=== PATIENT | male | born 1950 | race Caucasian/White ===

== ENCOUNTER → 2018-01-08 | Day surgery (SDC) | payer MEDICARE, OTHER ==
[~2018-01-08] MED LIST: ATORVASTATIN CA40 MG PO; CARVEDILOL12.5 MG PO; ENTRESTO 24 MG1 EACH PO; HYDROCODONE-AP1 EAC6 PO; HYOSCYAMINE0.125 M1 SUBQ; JANUMET XR 50-1 EAC1 PO; LEVEMIR100 UNIT/1 SUBQ; PLAVIX 75 MG TA75 M1 PO; VITAMIN E400 UNIT PO; VITAMINC500 PO
[2018-01-08 07:30] LABS: HEMATOCRIT 35.3 % (42.0-52.0); HEMOGLOBIN 11.1 gm/dL (14.0-18.0); MCH 26.7 pg (26.0-34.0); MCHC 31.5 g/dL (28.0-37.0); MCV 84.7 fL (80.0-100.0); MPV 8.1 fl. (7.2-11.1); RBC 4.17 mil/uL (4.50-6.00); RDW-CV 16.7 % (10.5-14.5); WBC 7.6 thou/uL (4.0-11.0)
[2018-01-08 07:34] LABS: CALCIUM 8.6 mg/dL (8.5-10.1); CREATININE 1.7 mg/dL (0.6-1.3); POTASSIUM 4.6 mmol/L (3.5-5.1)
[2018-01-08 07:46] LABS: ALBUMIN 3.4 g/dL (3.4-5.0); TOTAL BILIRUBIN 0.2 mg/dL (<0.1-1.0); TOTAL PROTEIN 6.9 g/dL (6.4-8.2)
--- NOTE | 2018-01-08 12:27 | OP ---
[facility] [address] [place] [address] OPERATIVE REPORT Name: GORGESAM Escobar Room: [facility]#: [id number] Admission: 01/08/18 Attend Phys: Johnathan Cole MD Discharge: Date of : 52 Report #: [id number] THIS REPORT FOR: //name// CC: Johnathan Dale DATE OF SERVICE: 01/08/2018 DATE OF PROCEDURE: 01/08/2018. PREOPERATIVE DIAGNOSES: Right hydronephrosis, ureteral calculus and renal insufficiency. POSTOPERATIVE DIAGNOSES: Right hydronephrosis, ureteral calculus, renal insufficiency and urethral stricture. PROCEDURES: Cystoscopy with dilation of urethral stricture, right retrograde pyelogram, right ureteroscopy and right ureteral stent placement. SURGEON: Johnathan Cole M.D. ANESTHESIA: General. ESTIMATED BLOOD LOSS: None. DRAINS: A 6 x 28 right ureteral stent. SPECIMENS: None. COMPLICATIONS: None. INDICATIONS: This is a 67-year-old male with renal insufficiency, who was noted to have right hydronephrosis on renal ultrasound. A CT scan done to evaluate this further reveals an 8 mm right proximal ureteral calculus. Alternatives for management were discussed and the patient presents for cystoscopy, right retrograde pyelogram, right ureteroscopy, laser stone manipulation and stent placement. Risks of procedure were explained including but not limited to bleeding; infection;, anesthesia; cardiopulmonary and vascular events; injuries to urethra, bladder or ureter; possible development of strictures; possible need for further stone procedures, irritative symptoms from the stent. We also discussed the need for timely followup regarding any stent left in place and the reasoning for that. The patient voiced clear understanding and wants to proceed. DESCRIPTION OF PROCEDURE: The patient was pretreated with IV Cipro. After induction of general anesthesia, he was positioned, prepped [place] [address] OPERATIVE REPORT Name: SAM PENNINGTON Room: [facility]#: [id number] Admission: 01/08/18 Attend Phys: Johnathan Cole MD Discharge: Date of : 52 Report #: [id number] lithotomy position. Timeout was performed. Cystourethroscopy was performed. There is a bulbar stricture noted, which was not passing with the scope. This was dilated with obturators from 17-Rwandan to 24-Rwandan. Cystourethroscopy was then repeated. The anterior urethra was otherwise normal. The prostatic urethra was within normal limits. The bladder was entered and systematically examined with 30 and 70-degree scopes. There were no stones or lesions visible within the bladder. Ureteral orifices were orthotopic. A 5-Rwandan ureteral catheter was used to perform a right retrograde pyelogram, which revealed a filling defect in the proximal ureter, with dilation of the ureter and renal pelvis cephalad to that. A sensor wire was advanced with fluoroscopic guidance to the right renal pelvis. Scope was removed leaving the wire in place. A semi-rigid ureteroscope was advanced alongside the wire and into the right ureter. This would only pass a few centimeters into the right ureter due to distal ureteral narrowing. Scope was used to pass a second wire with visual and fluoroscopic guidance into the renal pelvis. Scope was withdrawn leaving both wires in place. Attempts to pass a ureteral access sheath (11/13 Rwandan x 36 cm) were unsuccessful as were attempts to pass the obturator. I decided to place a stent and allow for passive dilation with treatment of his stone at a later date. The sheath in one of the wires was removed, leaving the other wire in place. That was loaded on the cystoscope and used for placement of a 6 x 28 right ureteral stent with good position confirmed in the renal pelvis fluoroscopically and in the bladder visually. Drainage from the stent was clear. The patient tolerated the procedure well and was taken to the recovery room in stable condition. Lidocaine jelly was given per urethra at the end of the procedure. Plan will be to set up repeat ureteroscopy in the next few weeks after allowing a period of passive dilation. <ELECTRONICALLY SIGNED> By: Johnathan Cole MD 01/08/18 1227 1004 [id number] Cole MD /nt
--- NOTE | 2018-01-09 13:36 | EKG ---
[place] [address] ELECTROCARDIOGRAM REPORT Name: PENNINGTONSAM GUY Room: [facility]#: [id number] Admission: 01/08/18 Attend Phys: Johnathan Cole MD Discharge: Date of : 52 Report #: [id number] THIS REPORT FOR: //name// [facility] Test Date: 2018-01-08 Test Time: 07:26:16 Pat Name: SAM PENNINGTON Department: Room: Gender: M Body And Frame Man: [facility] : 1950 Requested By: Johnathan Cole Order Number: [id number] Reading MD: Oscar August Measurements Intervals Hilliards Rate: 65 P: 46 OK: 138 QRS: 27 QRSD: 110 T: 167 QT: 429 QTc: 447 Interpretive Statements Sinus rhythm Ventricular premature complex Inferior infarct, old Lateral leads are also involved No previous ECG available for comparison Electronically Signed On 01-09-2018 13:36:40 CDT by Oscar August [email or web address] <ELECTRONICALLY SIGNED> By: Oscar August MD, [facility] 01/09/18 1336 0726 5 Oscar August MD, FACC /EPI
== END | disposition home or self-care (01) ==
LOC: M.SUR 07:05
PROVIDERS: Urology
DX: N13.2 Hydronephrosis with renal and ureteral calculous obstruction (principal); N35.9 Urethral stricture, unspecified; N28.9 Disorder of kidney and ureter, unspecified; Z79.899 Other long term (current) drug therapy

== ENCOUNTER → 2018-01-22 | Day surgery (SDC) | payer MEDICARE, OTHER ==
[2018-01-22 07:36] LABS: CALCIUM 8.3 mg/dL (8.5-10.1); CREATININE 1.7 mg/dL (0.6-1.3)
[2018-01-22 07:40] LABS: ALBUMIN 3.2 g/dL (3.4-5.0); TOTAL BILIRUBIN 0.2 mg/dL (<0.1-1.0); TOTAL PROTEIN 6.4 g/dL (6.4-8.2)
--- NOTE | 2018-01-25 16:23 | OP ---
[facility] [place] [address] [place] [address] OPERATIVE REPORT Name: GORGEASM Escobar Room: [facility].#: [id number] Admission: 01/22/18 Attend Phys: Johnathan Cole MD Discharge: Date of : 52 Report #: [id number] THIS REPORT FOR: //name// CC: Johnathan Dale DATE OF SERVICE: 01/22/2018 PREOPERATIVE DIAGNOSIS: Right ureteral calculus. POSTOPERATIVE DIAGNOSIS: Right ureteral calculus. PROCEDURE: Cystoscopy, right ureteral stent removal, right ureterorenoscopy, laser lithotripsy, stone extraction, right ureteral stent placement. SURGEON: Johnathan Cole M.D. ANESTHESIA: General. ESTIMATED BLOOD LOSS: None. DRAINS: 6 x 28 right ureteral stent. SPECIMENS: Stone fragments. COMPLICATIONS: None. INDICATIONS: This is a 67-year-old male who underwent recent stent placement for a right proximal ureteral calculus. He presents for repeat ureteroscopy with laser stone manipulation and stent exchange after a period of passive dilation. Alternatives and risks were explained. The patient voices clear understanding and wants to proceed. DESCRIPTION OF PROCEDURE: The patient was pretreated with IV Cipro. After induction of general anesthesia, he was positioned, prepped and draped in the lithotomy position. A timeout procedure was performed. Cystourethroscopy was performed. The patient has mild degree of anterior urethral stricture, which is passable with a 21-Chadian sheath. The anterior urethra is otherwise normal. There was bilateral lobe impingement in the prostatic urethra. The bladder was entered and systematically examined. There were no stones visible. The examination of the bladder does not reveal any lesions. There is an indwelling right ureteral stent. Stent was grasped with forceps and brought out to the urethral meatus where it was accessed with a sensor wire. A sensor wire was advanced to the right renal pelvis with fluoroscopic guidance. The stent was removed leaving the wire in place. A semirigid ureteroscope was advanced alongside the wire and into the ureter. The distal and [place] [address] OPERATIVE REPORT Name: SAM PENNINGTON Room: [facility].#: [id number] Admission: 01/22/18 Attend Phys: Johnathan Cole MD Discharge: Date of : 52 Report #: [id number] and noted to be without stones. Scope was used to advance a second wire into the renal pelvis. Scope was withdrawn leaving both wires in place. A ureteral access sheath (05/15-Chadian x 36 cm) was advanced over the original wire and passed easily up the ureter. The obturator was removed as was the wire within the sheath. This left the sheath in place with a safety wire alongside. Flexible ureteroscope was advanced per the sheath and passed easily to the proximal ureter. No stones were seen in the proximal ureter, but there was some ureteral edema at the prior location of the stone. This likely represents instrumentation resulting in the stone moving proximally. The scope was advanced to the renal pelvis and the calices were examined sequentially. Stone was encountered in the renal pelvis and engaged with a 365 micron holmium laser fiber. Laser lithotripsy was performed and the stone broke up nicely at 6.4 ibarra. Fragment was extracted with a 0 tip basket and sent for analysis. The remaining fragments are too small to entrap and appear passable. Fluoroscopic interrogation does not reveal any residual calculi in the kidney or ureter. The scope and sheath were withdrawn, leaving the wire in place. The wire was loaded on the cystoscope and used for placement of a 6 x 28 right ureteral stent with good position confirmed in the renal pelvis fluoroscopically and in the bladder visually. Lidocaine jelly was given per urethra. The patient tolerated the procedure well and was taken to the recovery room in stable condition. Plan will be to obtain a repeat radiograph in 1-2 weeks and then remove his stent if it does not show any significant residual stones. <ELECTRONICALLY SIGNED> By: Johnathan Cole MD 01/25/18 1623 0909 [id number] Cole MD /nt
[2018-01-30 07:06] LABS: STONE CA OXALATE MONOHYDRATE 95 % (()); STONE COLOR Tan (()); STONE WEIGHT 96.9 mg (())
== END | disposition home or self-care (01) ==
LOC: M.SUR 06:28
PROVIDERS: Urology
DX: N20.0 Calculus of kidney (principal); I11.0 Hypertensive heart disease with heart failure; I50.9 Heart failure, unspecified; E78.5 Hyperlipidemia, unspecified; I25.10 Atherosclerotic heart disease of native coronary artery without angina pectoris; I05.9 Rheumatic mitral valve disease, unspecified; E11.9 Type 2 diabetes mellitus without complications; D64.9 Anemia, unspecified; Z79.01 Long term (current) use of anticoagulants; Z98.890 Other specified postprocedural states; Z86.73 Personal history of transient ischemic attack (TIA), and cerebral infarction without residual deficits; Z87.891 Personal history of nicotine dependence; Z79.899 Other long term (current) drug therapy; Z95.0 Presence of cardiac pacemaker; Z87.442 Personal history of urinary calculi